=== PATIENT | male | born 1980 | race Caucasian/White ===

== ENCOUNTER 2017-10-02 17:33 | Emergency (ER) | payer OTHER ==
[~2017-10-02] VITALS: Ht 177.8 cm; Wt 86.4 kg
[2017-10-02 17:42] VITALS: TEMP 97.9
[2017-10-02] MEDS ORDERED: FLEXERIL 1010 MG/TAB PO (18:19)
[2017-10-02] MEDS ORDERED: LIDO35.4 TOP (18:38)
[2017-10-02 19:00] VITALS: BP 128/89; PULSE 88
== END 2017-10-02 19:02 | disposition home or self-care (01) ==
LOC: COL.ER 17:33
DX: M54.6 Pain in thoracic spine (principal); M62.830 Muscle spasm of back; Z98.890 Other specified postprocedural states
CPT/HCPCS: J1885; J2360

== ENCOUNTER 2017-10-24 03:37 | Emergency (ER) | payer OTHER ==
[~2017-10-24] VITALS: Ht 177.8 cm; Wt 81.8 kg
[~2017-10-24 03:37] MED LIST: FLEXERIL 1010 MG/TAB PO; LIDO35.4 TOP
[2017-10-24 03:41] VITALS: TEMP 98.3
[2017-10-24 05:25] VITALS: BP 141/96; PULSE 98
== END 2017-10-24 05:30 | disposition home or self-care (01) ==
LOC: COL.ER 03:37
DX: G43.909 Migraine, unspecified, not intractable, without status migrainosus (principal); F17.210 Nicotine dependence, cigarettes, uncomplicated
CPT/HCPCS: J1885; J2550

== ENCOUNTER 2017-12-08 09:39 | Emergency (ER) | payer OTHER ==
[~2017-12-08] VITALS: Ht 175.3 cm; Wt 81.8 kg
[2017-12-08 09:47] VITALS: BP 133/90; TEMP 98.6
[2017-12-08 11:29] VITALS: PULSE 106
[2017-12-08] MEDS ORDERED: LEVAQUIN 5500 MG/TA1 PO (11:31)
== END 2017-12-08 11:40 | disposition home or self-care (01) ==
LOC: COL.ER 09:39
DX: J18.1 Lobar pneumonia, unspecified organism (principal); G43.909 Migraine, unspecified, not intractable, without status migrainosus; F17.210 Nicotine dependence, cigarettes, uncomplicated

== ENCOUNTER 2017-12-16 05:14 | Emergency (ER) | payer OTHER ==
[~2017-12-16] VITALS: Ht 175.3 cm; Wt 77.3 kg
[~2017-12-16 05:14] MED LIST changes: +LEVAQUIN 5500 MG/TA1 PO
[2017-12-16 05:18] VITALS: TEMP 98.2
[2017-12-16 06:25] LABS: BASO % 0.5 % (0.0-2.0); EOS # 0.1 (0.0-0.7); EOS % 1.5 % (0-4.0); GRAN # 2.9 (1.4-6.5); GRAN % 36.9 % (42.2-75.2); LYMPH # 4.1 (1.2-3.4); LYMPH % 52.4 % (20.0-51.0); MEAN CELL VOLUME 86 fl (80.0-100.0); MEAN CORPUSCULAR HGB CONC 35 g/dl (33.0-37.0); MEAN PLATELET VOLUME 9.7 fl (7.4-10.4); MONO # 0.6 (0.1-0.6); MONO % 7.7 % (1.7-9.3); PLATELET COUNT 241 K/mm3 (130-400); RED BLOOD COUNT 6.06 M/mm3 (4.20-5.60); REDCELL DISTRIBUTION WIDTH-CV 13.1 % (11.5-14.5)
[2017-12-16 06:28] LABS: HEMATOCRIT 52.2 % (42.0-52.0); HEMOGLOBIN 18.4 g/dl (13.5-18.0); MEAN CORPUSCULAR HEMOGLOBIN 30 pg (27.0-31.0)
[2017-12-16 06:40] LABS: ALBUMIN 4.3 gm/dL (3.5-5.0); BILIRUBIN,TOTAL 0.5 mg/dL (0.0-1.0); CREATININE, serum 1.01 mg/dL (0.66-1.25); POTASSIUM 4.2 mmol/L (3.4-5.0); TOTAL PROTEIN 7.9 gm/dL (6.4-8.2)
[2017-12-16] MEDS ORDERED: AMOXICILLIN 8751 TAB PO (07:46)
[2017-12-16] MEDS ORDERED: ZITHROMAX 250M250 MG PO (07:46)
[2017-12-16] MEDS ORDERED: PREDNISONE10 MG PO (07:47)
[2017-12-16 08:21] VITALS: BP 141/87; PULSE 98
== END 2017-12-16 08:31 | disposition home or self-care (01) ==
LOC: COL.ER 05:14
PROVIDERS: Emergency Medicine
DX: J18.1 Lobar pneumonia, unspecified organism (principal); F17.210 Nicotine dependence, cigarettes, uncomplicated
CPT/HCPCS: J7030; J7512; Q9967